=== PATIENT | female | born 1975 | race Caucasian/White ===

== ENCOUNTER 2019-06-28 08:00 | Outpatient (CLI) | payer MEDICAID ==
[2019-06-28 20:58] LABS: CANDIDA GROUP DNA POSITIVE (NEGATIVE); CANDIDA KRUSEI DNA NEGATIVE (NEGATIVE); TRICHOMONAS VAGINALIS DNA NEGATIVE (NEGATIVE)
== END 2019-06-28 23:59 | disposition home or self-care (01) ==
LOC: LAB.R 08:00
PROVIDERS: ATTEND Physician Assistant Medical
DX: N89.8 Other specified noninflammatory disorders of vagina (principal)
CPT/HCPCS: 87491; 87591; 87661; 87801

== ENCOUNTER 2019-07-01 08:00 | Outpatient (CLI) | payer MEDICAID ==
[2019-07-01 21:27] LABS: TRICHOMONAS VAGINALIS DNA NEGATIVE (NEGATIVE)
== END 2019-07-01 23:59 | disposition home or self-care (01) ==
LOC: LAB.R 08:00
PROVIDERS: ATTEND Physician Assistant Medical
DX: N89.8 Other specified noninflammatory disorders of vagina (principal)
CPT/HCPCS: 87491; 87591; 87661

== ENCOUNTER 2019-12-14 10:54 | Outpatient (CLI) | payer MEDICAID ==
--- NOTE | 2019-12-14 13:05 | XRAY Report ---
Reason: RIGHT ANKLE PAIN Procedure Date: 12/14/2019 Accession Number: [id number] / [id number] Procedure: WCP - Ankle 3 View RT CPT Code: Final Report FULL RESULT: PROCEDURE: Ankle 3 View RT INDICATIONS: RIGHT ANKLE PAIN TECHNIQUE: 3 views of the ankle were acquired. COMPARISON: None FINDINGS: Osteoarthritic changes of the tibiotalar and fibulotalar joints with narrowing of the mortise, small marginal osteophytes, and subchondral sclerosis of the medial talus. There is a small ankle joint effusion. IMPRESSION: Moderate osteoarthritic changes of the ankle. Small joint effusion likely related. Reviewed by: Fidel Pascual MD on 12/14/2019 1:04 PM PDT Approved by: Fidel Pascual MD on 12/14/2019 1:04 PM PDT Station ID: [id number]
== END 2019-12-14 23:59 | disposition home or self-care (01) ==
LOC: DI.WCP 10:54
PROVIDERS: ATTEND Physician Assistant
DX: M19.071 Primary osteoarthritis, right ankle and foot (principal)

== ENCOUNTER 2021-03-10 13:13 | Outpatient (CLI) | payer MEDICAID ==
--- NOTE | 2021-03-10 14:11 | XRAY Report ---
PROCEDURE: Knee 3 View LT INDICATIONS: LEFT KNEE PAIN TECHNIQUE: 4 views of the left knee(s) were acquired. COMPARISON: None. FINDINGS: Bones: No fractures or dislocations. Mild to moderate tricompartmental osteoarthritis is seen more p rominent in medial femoral tibial compartment. No suspicious bony lesions. Soft tissues: Moderate to large suprapatellar joint effusion is seen. No suspicious soft tissue calc ifications. IMPRESSION: Mild to moderate tricompartmental osteoarthritis more prominent in medial femoral tibial compartment. No fracture or dislocation. Moderate to large joint effusion. If indicated, MRI of knee can be done for evaluation of internal derangement. Reviewed by: Ananda Cordova MD on 03/10/2021 2:10 PM PDT Approved by: Ananda Cordova MD on 03/10/2021 2:10 PM PDT Station ID: [id number]
== END 2021-03-10 23:59 ==
LOC: DI.N 13:13
PROVIDERS: ATTEND Family Medicine
DX: M17.12 Unilateral primary osteoarthritis, left knee (principal); M25.462 Effusion, left knee

== ENCOUNTER 2021-09-25 12:38 | Outpatient (CLI) | payer MEDICAID ==
[2021-09-25 17:51] LABS: BASOPHILS # (AUTO) 0.1 10^3/uL (0.0-0.1); BASOPHILS % (AUTO) 0.9 %; EOSINOPHILS # (AUTO) 0.1 10^3/uL (0.0-0.7); EOSINOPHILS % (AUTO) 1.3 %; HCT - HEMATOCRIT 34.9 % (37.0-47.0); HGB - HEMOGLOBIN 9.8 g/dL (12.0-16.0); LYMPHOCYTES # (AUTO) 1.8 10^3/uL (1.5-3.5); LYMPHOCYTES % (AUTO) 23.8 %; MEAN CORPUSCULAR HEMOGLOBIN 19.3 pg (27.0-31.0); MEAN CORPUSCULAR HGB CONC 28.1 g/dL (32.0-36.0); MEAN CORPUSCULAR VOLUME 68.6 fL (81.0-99.0); MEAN PLATELET VOLUME 11.3 fL (7.9-10.8); MONOCYTES # (AUTO) 0.6 10^3/uL (0.0-1.0); MONOCYTES % (AUTO) 7.7 %; PLT - PLATELET COUNT 426 10^3/uL (130-450); RED BLOOD COUNT 5.09 10^6/uL (4.20-5.40); RED CELL DISTRIBUTION WIDTH 23.1 % (12.0-15.0); WHITE BLOOD COUNT 7.6 x10^3/uL (4.8-10.8)
[2021-09-25 18:10] LABS: % IRON SATURATION 29 % (20-50); ALBUMIN 4.3 g/dL (3.2-5.5); ALBUMIN/GLOBULIN RATIO 1.2 (1.0-2.2); ALKALINE PHOSPHATASE 87 IU/L (42-121); ALT ALANINE AMINOTRANSFERASE 26 IU/L (10-60); AST ASPARTATE AMINOTRANSFERASE 25 IU/L (10-42); BILIRUBIN,TOTAL 0.5 mg/dL (0.2-1.0); BUN - BLOOD UREA NITROGEN 16 mg/dL (6-20); CALCIUM 9.6 mg/dL (8.5-10.3); CARBON DIOXIDE - CO2 25 mmol/L (21-32); CHLORIDE 99 mmol/L (101-111); CHOLESTEROL 206 mg/dL; CREATININE 0.7 mg/dL (0.4-1.0); GFR - MDRD 90 (>89); GLUCOSE 106 mg/dL (70-100); HDL CHOLESTEROL 51 mg/dL; IRON 158 ug/dL (28-170); LDL CHOLESTEROL,CALCULATED 138 mg/dL; LDL/HDL RATIO 2.7 (<4.4); POTASSIUM 3.9 mmol/L (3.5-5.0); SODIUM 136 mmol/L (135-145); TOTAL IRON BINDING CAPACITY 546 ug/dL (250-450); TOTAL PROTEIN 7.9 g/dL (6.7-8.2); TRANSFERRIN 390 mg/dL (192-382); TRIGLYCERIDES 85 mg/dL; VLDL CHOLESTEROL 17 mg/dL
[2021-09-25 18:19] LABS: THYROID STIMULATING HORMONE 1.57 uIU/mL (0.34-5.60)
[2021-09-25 18:24] LABS: FERRITIN 6.8 ng/mL (11.0-306.8)
[2021-09-25 18:31] LABS: PLATELET ESTIMATE, MANUAL NORMAL (130-450,000) (NORMAL); PLATELET MORPHOLOGY 1+ GIANT PLATELETS (NORMAL); SLIDE REVIEW? Indicated; WBC MORPHOLOGY (MULTIPLE) NORMAL APPEARANCE (NORMAL)
[2021-09-25 19:56] LABS: ESTIMATED AVERAGE GLUCOSE 108 mg/dL (70-100); HEMOGLOBIN A1c% 5.4 % (4.27-6.07)
== END 2021-09-25 12:39 | disposition home or self-care (01) ==
LOC: LAB.N 12:38
PROVIDERS: ATTEND Nurse Practitioner Family
DX: E66.01 Morbid (severe) obesity due to excess calories (principal); K59.00 Constipation, unspecified; R19.7 Diarrhea, unspecified; Z13.220 Encounter for screening for lipoid disorders; E55.9 Vitamin D deficiency, unspecified; Z13.1 Encounter for screening for diabetes mellitus; Z98.84 Bariatric surgery status
CPT/HCPCS: 36415; 80053; 80061; 81599; 82306; 82607; 82728; 82746; 83036; 83516; 83540; 83721; 84425; 84443; 84466; 85025; 86003

== ENCOUNTER 2021-11-08 15:09 | Outpatient (CLI) | payer MEDICAID ==
[2021-11-08 17:57] LABS: BASOPHILS # (AUTO) 0.1 10^3/uL (0.0-0.1); BASOPHILS % (AUTO) 0.9 %; EOSINOPHILS # (AUTO) 0.1 10^3/uL (0.0-0.7); HCT - HEMATOCRIT 38.5 % (37.0-47.0); HGB - HEMOGLOBIN 11.6 g/dL (12.0-16.0); LYMPHOCYTES # (AUTO) 1.5 10^3/uL (1.5-3.5); MEAN CORPUSCULAR HEMOGLOBIN 22.6 pg (27.0-31.0); MEAN CORPUSCULAR HGB CONC 30.1 g/dL (32.0-36.0); MONOCYTES # (AUTO) 0.4 10^3/uL (0.0-1.0); MONOCYTES % (AUTO) 5.4 %; NEUTROPHILS # (AUTO) 5.9 10^3/uL (1.5-6.6); NEUTROPHILS % (AUTO) 73.3 %; PLT - PLATELET COUNT 367 10^3/uL (130-450); RED BLOOD COUNT 5.13 10^6/uL (4.20-5.40)
[2021-11-08 18:58] LABS: % IRON SATURATION 17 % (20-50); IRON 56 ug/dL (28-170); TOTAL IRON BINDING CAPACITY 332 ug/dL (250-450); TRANSFERRIN 237 mg/dL (192-382)
== END 2021-11-08 15:10 | disposition home or self-care (01) ==
LOC: LAB.N 15:09
PROVIDERS: ATTEND Nurse Practitioner Family
DX: D50.9 Iron deficiency anemia, unspecified (principal); R19.5 Other fecal abnormalities
CPT/HCPCS: 36415; 82728; 83540; 84466; 85025

== ENCOUNTER 2021-12-13 08:32 | Inpatient (IN) | payer MEDICAID ==
[2021-12-13 08:51] LABS: HCG UR QUAL NEGATIVE
[2021-12-13] MEDS ORDERED: LIDOCAINE 1% 50 ML MDV ONE (09:04)
[2021-12-13] MEDS ORDERED: BUPIVACAINE 0.5% PF 30 ML VIAL ONE (09:04)
[2021-12-13] MEDS ORDERED: LACTATED RINGERS 1,000 ML IV ONE ×2 (09:09→14:53)
[2021-12-13] MEDS ORDERED: PROPOFOL 200 MG/20 ML VIAL IVP ONE ×2 (09:12→10:42)
[2021-12-13] MEDS ORDERED: DEXAMETHASONE 4 MG/ML VIAL ONE (09:12)
[2021-12-13] MEDS ORDERED: ROCURONIUM 50 MG/5 ML VIAL ONE ×4 (09:12→13:11)
[2021-12-13] MEDS ORDERED: LIDOCAINE-MPF 2% 5 ML VIAL ONE (09:12)
[2021-12-13] MEDS ORDERED: ONDANSETRON 4 MG/2 ML VIAL ONE (09:12)
--- NOTE | 2021-12-13 09:15 | ANESTHESIA ---
Pre-Anesthesia VS, & Labs - Diagnosis incarcerated ventral hernia - Procedure open repair of ventral hernia Vital Signs: Temp Pulse Resp BP Pulse Ox 36.0 C L 71 16 115/78 95 12/13/21 08:49 12/13/21 08:49 12/13/21 08:49 12/13/21 08:49 12/13/21 08:49 Height: 5 ft 9 in Weight (kg): 122.2 kg Body Mass Index: 39.7 BMI Classification: Obese - NPO >8 hours - Is Patient ?: No Home Medications and Allergies Home Medications: Ambulatory Orders Dextroamphetamine/Amphetamine [Adderall 30 mg Tablet] 30 mg PO DAILY 12/05/21 buPROPion HCl [Wellbutrin Sr] 200 mg PO DAILY 12/05/21 Active Medications Cefazolin Sodium 3 gm/ Sodium (Chloride) 50 mls @ 100 mls/hr IV ONCE ONE Stop: 12/13/21 09:59 Dextroamphetamine/Amphetamine [Adderall 30 mg Tablet] 30 mg PO DAILY 12/05/21 buPROPion HCl [Wellbutrin Sr] 200 mg PO DAILY 12/05/21 Allergies/Adverse Reactions: Allergies Allergy/AdvReac Type Severity Reaction Status Date / Time naproxen [From Naprosyn] Allergy Severe Edema Verified 12/05/21 14:36 Anes History & Medical History - Anesthetic History Anesthesia Complications: reports: Other-see comment (slow heart rate on emergence) - Medical History Cardiovascular: reports: None Pulmonary: reports: None Gastrointestinal: reports: Other (history of gastric bypass) Urinary: reports: None Neuro: reports: None Musculoskeletal: reports: Osteoarthritis Endocrine/Autoimmune: reports: None Blood Disorders: reports: None Skin: reports: None Smoking Status: Former smoker (quit 10 years ago) Psychosocial: reports: Depression, Other (ADHD) History of Cancer?: No - Surgical History General: reports: Other (gastric bypass) Gynecologic: reports: section, Tubal ligation Exam General: Alert, Oriented x3, Cooperative, No acute distress Dental: WNL (upper bridge) Mouth Openin Fingerbreadth Neck Mobility: Normal Mallampati classification: II Thyromental Distance: 4-6 cm Respiratory: Lungs clear, Normal breath sounds, No respiratory distress, No accessory muscle use Cardiovascular: Regular rate, Normal S1, Normal S2, No murmurs Mental/Cognitive Status: Alert/Oriented X3, Normal for patient Plan Anesthesia Type: General Consent for Procedure(s) Verified and Reviewed: Yes Code Status: Attempt Resuscitation ASA classification: 2-Mild systemic disease Is this case an emergency?: No
[2021-12-13] MEDS ORDERED: HYDROmorphone 0.5 MG/0.5 ML SYRINGE IVP PRN (09:17)
[2021-12-13] MEDS ORDERED: NALOXONE 0.4 MG/ML VIAL IVP PRN (09:17)
[2021-12-13] MEDS ORDERED: fentaNYL 100 MCG/2 ML VIAL IVP PRN (09:17)
[2021-12-13] MEDS ORDERED: ONDANSETRON 4 MG/2 ML VIAL IVP PRN (09:17)
[2021-12-13] MEDS ORDERED: MORPHINE 2 MG/ML CARPUJECT IVP PRN (09:17)
[2021-12-13] MEDS ORDERED: ATROPINE ABBOJECT 1 MG/10 ML SYRINGE IVP PRN (09:17)
[2021-12-13] MEDS ORDERED: MIDAZOLAM 2 MG/2 ML VIAL ONE (09:18)
[2021-12-13] MEDS ORDERED: fentaNYL 100 MCG/2 ML VIAL ONE ×4 (09:18→14:37)
[2021-12-13] MEDS ORDERED: SEVOFLURANE 250 ML LIQUID INH ONE (09:24)
[2021-12-13] MEDS ORDERED: BUPIVACAINE 0.25% PF 10 ML VIAL ONE ×2 (09:33→13:17)
--- NOTE | 2021-12-13 09:46 | HISTORY & PHYSICAL EXAMINATION ---
Chief Complaint - Chief Complaint Chief Complaint: hernia bulge History of Present Illness - History Obtained From Records Reviewed: yes History obtained from: pt Exam Limitations: none - History of Present Illness HPI Comment/Other: history open gastric bypass many years ago. She has an enlarging and symptomatic incisional hernia History - Past Medical History Cardiovascular: reports: None Respiratory: reports: None Neuro: reports: None Endocrine/Autoimmune: reports: None GI: reports: Other (history of gastric bypass) : reports: None Psych: reports: Depression, Anxiety, ADD/ADHD, Post traumatic stress disorder Musculoskeletal: reports: Osteoarthritis Derm: reports: None MRSA Hx?: No - Past Surgical History General: reports: Other (gastric bypass) /[employer]: reports: section, Tubal ligation Meds/Allgy - Home Medications Home Medications: Ambulatory Orders Medication Instructions Recorded Confirmed Dextroamphetamine/Amphetamine 30 mg PO DAILY 12/05/21 12/13/21 [Adderall 30 mg Tablet] buPROPion HCl [Wellbutrin Sr] 200 mg PO DAILY 12/05/21 12/13/21 - Allergies Allergies/Adverse Reactions: Allergies Allergy/AdvReac Type Severity Reaction Status Date / Time naproxen [From Naprosyn] Allergy Severe Edema Verified 12/05/21 14:36 Review of Systems - Other Findings Other Findings: 10 pt ros as above otherwise unremarkable Exam - Vital Signs Reviewed Vital Signs: Yes Vital Signs: Vital Signs x48h Temp Pulse Resp BP Pulse Ox 12/13/21 08:49 36.0 C L 71 16 115/78 95 - Physical Exam General Appearance: positive: No acute distress, Alert Eyes Bilateral: positive: PERRL, EOMI, No scleral icterus ENT: positive: No signs of dehydration Neck: positive: No JVD Respiratory: positive: Breath sounds nml Cardiovascular: positive: Regular rate & rhythm Abdomen: positive: Non-tender, No distention, Other (large upper midline incisional hernia) Neurologic/Psychiatric: positive: Oriented x3 Conclusion/Plan - Problem List (1) Incisional hernia Conclusion/Plan: plan open repair with mesh. parq held and consent obtained
[2021-12-13] MEDS ORDERED: LACTATED RINGERS 1,000 ML IV SCH (10:00)
[2021-12-13] MEDS ORDERED: SCOPOLAMINE PATCH TOP SCH (10:00)
[2021-12-13] MEDS ORDERED: BUPIVACAINE 0.25% PF 30 ML VIAL SUBQ ONE ×2 (10:31)
[2021-12-13] MEDS ORDERED: ACETAMINOPHEN 1,000 MG/100 ML 1,000 MG/100 ML BAG IV ONE (10:43)
[2021-12-13] MEDS ORDERED: KETAMINE 500 MG/10 ML VIAL ONE (10:49)
[2021-12-13] MEDS ORDERED: SUGAMMADEX 200 MG/2 ML VIAL IVP ONE (12:50)
[2021-12-13] MEDS ORDERED: HYDROmorphone 1 MG/ML CARPUJECT ONE (13:04)
[2021-12-13] MEDS ORDERED: LACTATED RINGERS 800 ML IV ONE ×2 (14:01)
[2021-12-13] MEDS ORDERED: ONDANSETRON ODT 4 MG TABLET TL PRN (14:03)
[2021-12-13] MEDS ORDERED: HYDROmorphone 0.5 MG/0.5 ML SYRINGE ONE (14:37)
[2021-12-13] MEDS: LORazepam 0.5 MG TABLET PO PRN ×2 (14:44→17:43)
[2021-12-13] MEDS ORDERED: LORazepam 2 MG/ML VIAL ONE (14:52)
--- NOTE | 2021-12-13 15:15 | ANESTHESIA POST OP EVALUATION ---
Anesthesia Post Eval - Post Anesthesia Eval Vitals: Last Vital Signs Temp 36.8 C 12/13/21 15:03 Pulse 67 12/13/21 15:03 Resp 15 12/13/21 15:03 BP 152/90 H 12/13/21 15:03 Pulse Ox 97 12/13/21 15:03 CV Function Including HR & BP: Stable Pain Control: Satisfactory Nausea & Vomiting: Negative Mental Status: Baseline Respiratory Status: Airway Patent Hydration Status: Satisfactory Anesthesia Complications: None
[2021-12-13] MEDS ORDERED: LORazepam 2 MG/ML VIAL IVP ONE (16:00)
[2021-12-13] MEDS ORDERED: LORazepam 2 MG/ML VIAL IVP SCH (16:00)
[2021-12-13] MEDS: HYDROmorphone 0.5 MG/0.5 ML SYRINGE IVP PRN ×3 (16:35→23:34)
[2021-12-13] MEDS: D5.45NS W/20 MEQ KCL 1,000 ML IV SCH (16:41)
[2021-12-13] MEDS: SODIUM CHLORIDE FLUSH 0.9% 10 ML SYRINGE IVP SCH ×2 (17:22→23:34)
--- NOTE | 2021-12-13 18:08 | OPERATIVE REPORT ---
Operative Report - General Admit Date: 12/13/21 Procedure Date: 12/13/21 Planned Procedure: open incisional hernia repair with mesh Pre-Op Diagnosis: incarcerated incisional hernia Procedure Performed: open incisional hernia repair with mesh Post Op Diagnosis: incarcerated incisional hernia - Procedure Note Primary Surgeon: pedro hinojosa Anesthesia Technique: General ET tube, Local Pathology: skin, subcutaneous tissue, sac, portion omentum removed. not sent Estimated Blood Loss (mL): 175 Drain/Tube Type: Other (none) Indications: painful hernia bulge Findings: 6 x 12 cm fascial defect Complications: none - Other Other Information/Narrative: Patient was properly identified brought to the operating room and placed in supine position. Sequential compression devices were placed. Endotracheal anesthesia was induced. She was prepped and draped in a sterile fashion and given preoperative antibiotics. She had a supraumbilical 12 cm bulge on standing. This was partially reduced under anesthesia. Hernia bulge extended left lateral of the umbilicus. 8 x 6 cm wide elliptical incision was made and extended to the left lateral of the umbilicus. Dissection proceeded down to the hernia sac. Hernia sac was mobilized away from surrounding subcutaneous tissue down to the fascial defect. Hernia sac was then opened. A small portion of omentum which was densely adherent to the hernia sac was removed with the subcutaneous tissue and skin as well as hernia sac. Hemostasis was was achieved with clamps and 2-0 Vicryl ties. She had multiple near continuous fascial defects up to the epigastrium. An additional elliptical incision was made from the epigastrium to the periumbilical area. In her hernia sac was mobilized back to good fascia and then removed. Omental adhesions to the abdominal wall were taken down. Hemostasis was assured. No apparent complications. Omentum was largely beneath the midline incision area. 4 x 8 inch separate mesh was cut down to 2 to 2-1/2 inch wide by 7/2 inch long. Mesh was secured under the rectus with multiple interrupted 0 Prolene sutures. Fascia was closed over the mesh with additional interrupted 0 Prolene sutures which incorporated the mesh. Subcutaneous tissue was then closed in layers with 2 layers of interrupted 2-0 Vicryl suture followed by buried interrupted subdermal 3-0 Vicryl sutures. Skin was closed with a running 4-0 Monocryl subcuticular suture. Skin was applied. She was awakened and brought to recovery in good condition.
[2021-12-13] MEDS: HYDROmorphone PCA 20MG/100ML IV PRN (19:39)
[2021-12-13] MEDS: ONDANSETRON 4 MG/2 ML VIAL IVP PRN (23:34)
[2021-12-14] MEDS: D5.45NS W/20 MEQ KCL 1,000 ML IV SCH ×3 (02:18→21:55)
[2021-12-14] MEDS: LORazepam 0.5 MG TABLET PO PRN ×3 (02:18→21:54)
[2021-12-14] MEDS: HYDROmorphone 0.5 MG/0.5 ML SYRINGE IVP PRN ×3 (05:27→12:10)
[2021-12-14] MEDS: oxyCODONE 5 MG TABLET PO PRN ×2 (06:11→19:05)
[2021-12-14] MEDS: HEPARIN 5,000 UNIT/ML VIAL SUBQ SCH ×3 (06:27→21:55)
[2021-12-14] MEDS: ONDANSETRON 4 MG/2 ML VIAL IVP PRN ×2 (08:02→13:51)
[2021-12-14] MEDS: SODIUM CHLORIDE FLUSH 0.9% 10 ML SYRINGE IVP SCH ×2 (08:13→21:58)
[2021-12-14] MEDS: buPROPion SR 100 MG TABLET PO SCH (08:20)
--- NOTE | 2021-12-14 10:58 | PROVIDER PROGRESS NOTE ---
Subjective - Subjective Pt reports feeling: No change (very painful and no appetite) Objective - Vital Signs/Intake & Output Reviewed Vital Signs: Yes Vital Signs: Vital Signs x48h Temp Pulse Resp BP BP Pulse Ox 12/14/21 08:00 36.5 C 18 136/74 H 92 12/14/21 06:50 15 12/14/21 05:33 36.3 C L 69 16 121/67 95 12/14/21 05:00 16 12/14/21 03:00 14 Intake & Output: Intake & Output 12/11/21 12/12/21 12/13/21 12/14/21 23:59 23:59 23:59 23:59 Intake Total 1203.333 443.333 Output Total 625 900 Balance 578.333 -456.667 - Objective General Appearance: positive: No acute distress, Alert Eyes Bilateral: positive: PERRL, EOMI Respiratory: positive: No respiratory distress Abdomen: positive: No distention Neurologic/Psychiatric: positive: Oriented x3 Assessment/Plan - Problem List (1) Incisional hernia Impression: very large incarcerated incisional hernia and repair 12/13/2021. ileus and painful which is normal for size of repair. continue present care verdugo out tomorrow and pt consult tomorrow home when ambulating safely and pain controlled on pills alone. on transportation agent currently
[2021-12-14] MEDS: DOCUSATE SODIUM 250 MG CAPSULE PO SCH (12:13)
--- NOTE | 2021-12-14 14:56 | PHARMACY PROGRESS NOTE ---
- Best Possible Medication History Admit Date and Time: 12/13/21 1508 Processed by: Pharmacy Medication History completed: Yes Patient Interview: Pt unable to participate Secondary Source(s): Insurance records As the person ultimately responsible for medication therapy, providers are able to order a medication from an existing home medication list in [facility] via the "Reconcile Routine" prior to Confirmation of that medication by patient support representative. Such practice is discouraged except when the physician, in their clinical judgment, deems that a medical need exists for a medication without regard to previous use.
[2021-12-14] MEDS: ACETAMINOPHEN 325 MG TABLET PO PRN (19:05)
[2021-12-14] MEDS: HYDROmorphone PCA 20MG/100ML IV PRN (22:41)
[2021-12-15] MEDS: SODIUM CHLORIDE FLUSH 0.9% 10 ML SYRINGE IVP SCH ×4 (00:39→23:43)
[2021-12-15] MEDS: oxyCODONE 5 MG TABLET PO PRN ×6 (00:50→22:21)
[2021-12-15] MEDS: ACETAMINOPHEN 325 MG TABLET PO PRN ×5 (00:51→22:25)
[2021-12-15] MEDS: ONDANSETRON 4 MG/2 ML VIAL IVP PRN ×2 (00:54→07:53)
[2021-12-15] MEDS: SODIUM CHLORIDE FLUSH 0.9% 10 ML SYRINGE IVP PRN (00:54)
[2021-12-15] MEDS: D5.45NS W/20 MEQ KCL 1,000 ML IV SCH ×2 (07:48→16:46)
[2021-12-15] MEDS: HEPARIN 5,000 UNIT/ML VIAL SUBQ SCH ×2 (07:49→20:09)
[2021-12-15] MEDS: buPROPion SR 100 MG TABLET PO SCH (07:53)
[2021-12-15] MEDS: DOCUSATE SODIUM 250 MG CAPSULE PO SCH ×2 (07:54→18:02)
[2021-12-15] MEDS: polyethylene glycoL 3350 17 GM PACKET PO SCH (07:55)
--- NOTE | 2021-12-15 09:51 | PROVIDER PROGRESS NOTE ---
Subjective - Subjective Pt reports feeling: Improved (still very uncomforable however better. nausea remains) Objective - Vital Signs/Intake & Output Reviewed Vital Signs: Yes Vital Signs: Vital Signs x48h Temp Pulse Resp BP Pulse Ox 12/15/21 07:17 36.7 C 79 17 137/74 H 90 L 12/15/21 05:47 16 Intake & Output: Intake & Output 12/12/21 12/13/21 12/14/21 12/15/21 23:59 23:59 23:59 23:59 Intake Total 3262.799 2292.000 1048.333 Output Total 625 1700 775 Balance 186.894 8841.000 273.333 - Objective General Appearance: positive: No acute distress, Alert Eyes Bilateral: positive: PERRL, EOMI ENT: positive: No signs of dehydration Neck: positive: No JVD Respiratory: positive: No respiratory distress Abdomen: positive: Non-tender, No distention Neurologic/Psychiatric: positive: Oriented x3 Assessment/Plan - Problem List (1) Incisional hernia Impression: very large incisional hernia and repair. very painful and ileus as anticipated ie normal for this size of hernia repair d/c verdugo continue current care otherwise home when able to ambulate safely, comfortable on pain pills alone, no longer requiring o2
[2021-12-15] MEDS: LORazepam 0.5 MG TABLET PO PRN (16:46)
[2021-12-15] MEDS: diphenhydrAMINE INJ 50 MG/ML VIAL IVP PRN (20:11)
[2021-12-16] MEDS: ACETAMINOPHEN 325 MG TABLET PO PRN ×5 (02:30→18:19)
[2021-12-16] MEDS: oxyCODONE 5 MG TABLET PO PRN ×6 (02:30→22:15)
[2021-12-16] MEDS: D5.45NS W/20 MEQ KCL 1,000 ML IV SCH ×3 (02:32→14:23)
[2021-12-16] MEDS: diphenhydrAMINE INJ 50 MG/ML VIAL IVP PRN (05:23)
[2021-12-16] MEDS: polyethylene glycoL 3350 17 GM PACKET PO SCH (07:54)
[2021-12-16] MEDS: buPROPion SR 100 MG TABLET PO SCH (07:56)
[2021-12-16] MEDS: HEPARIN 5,000 UNIT/ML VIAL SUBQ SCH ×2 (07:59→22:10)
[2021-12-16] MEDS: SODIUM CHLORIDE FLUSH 0.9% 10 ML SYRINGE IVP SCH ×3 (08:09→23:27)
[2021-12-16] MEDS: LORazepam 0.5 MG TABLET PO PRN ×2 (08:19→16:14)
[2021-12-16] MEDS: HYDROmorphone PCA 20MG/100ML IV PRN (08:27)
[2021-12-16] MEDS ORDERED: LACTULOSE 10 GM /15 ML UDC PO ONE (09:00)
[2021-12-16] MEDS: HYDROmorphone 0.5 MG/0.5 ML SYRINGE IVP PRN ×2 (11:59→16:14)
[2021-12-16] MEDS: DOCUSATE SODIUM 250 MG CAPSULE PO SCH ×3 (11:59→14:25)
--- NOTE | 2021-12-16 14:16 | PROVIDER PROGRESS NOTE ---
Subjective - Subjective Pt reports feeling: Improved (pain improved and less nausea) Objective - Vital Signs/Intake & Output Reviewed Vital Signs: Yes Vital Signs: Vital Signs x48h Pulse Resp BP Pulse Ox 12/16/21 13:00 17 12/16/21 08:27 17 12/16/21 07:15 79 16 117/63 92 Intake & Output: Intake & Output 12/13/21 12/14/21 12/15/21 12/16/21 23:59 23:59 23:59 23:59 Intake Total 4262.234 6280.000 2435.000 2510.007 Output Total 625 1700 1375 Balance 118.818 6432.000 8208.303 2661.007 - Objective General Appearance: positive: No acute distress, Alert, Other (appears much more comfortable today) Eyes Bilateral: positive: PERRL, EOMI, No scleral icterus ENT: positive: No signs of dehydration Neck: positive: No JVD Respiratory: positive: No respiratory distress Abdomen: positive: Non-tender, No distention, Other (dressing c/d/i no erythema. very mild ecchymosis) Neurologic/Psychiatric: positive: Oriented x3 Assessment/Plan - Problem List (1) Incisional hernia Impression: pain better and nausea improved. breathing easier today decrease ivf d/c stitcher standard machine when pain controlled on pain pills likely home tomorrow
[2021-12-17] MEDS: HYDROmorphone 0.5 MG/0.5 ML SYRINGE IVP PRN ×2 (00:39→17:22)
[2021-12-17] MEDS: diphenhydrAMINE INJ 50 MG/ML VIAL IVP PRN ×2 (00:39→22:07)
[2021-12-17] MEDS: oxyCODONE 5 MG TABLET PO PRN ×6 (02:31→23:12)
[2021-12-17] MEDS: ACETAMINOPHEN 325 MG TABLET PO PRN ×6 (02:32→23:11)
[2021-12-17] MEDS: D5.45NS W/20 MEQ KCL 1,000 ML IV SCH (07:01)
[2021-12-17] MEDS: DOCUSATE SODIUM 250 MG CAPSULE PO SCH (07:57)
[2021-12-17] MEDS: buPROPion SR 100 MG TABLET PO SCH (07:57)
[2021-12-17] MEDS: polyethylene glycoL 3350 17 GM PACKET PO SCH (07:57)
[2021-12-17] MEDS: LORazepam 0.5 MG TABLET PO PRN ×2 (07:58→17:23)
[2021-12-17] MEDS: SODIUM CHLORIDE FLUSH 0.9% 10 ML SYRINGE IVP SCH ×4 (07:58→22:07)
[2021-12-17] MEDS: HEPARIN 5,000 UNIT/ML VIAL SUBQ SCH ×2 (08:00→21:49)
--- NOTE | 2021-12-17 09:20 | PROVIDER PROGRESS NOTE ---
Subjective - Subjective Pt reports feeling: No change (still painful requiring block cutter) Objective - Vital Signs/Intake & Output Reviewed Vital Signs: Yes Vital Signs: Vital Signs x48h Pulse Resp BP Pulse Ox 12/17/21 07:49 72 18 125/70 95 12/17/21 06:00 18 12/17/21 02:00 16 Intake & Output: Intake & Output 12/14/21 12/15/21 12/16/21 12/17/21 23:59 23:59 23:59 23:59 Intake Total 2855.000 2435.000 3000.007 881.667 Output Total 1700 1375 Balance 8570.390 5083.000 3000.007 881.667 - Other Results/Comments Other Results/Comments: spoke with nurse. still painful. mobility is limited and diet is poor Assessment/Plan - Problem List (1) Incisional hernia Impression: very large hernia and repair. still painful with limited mobility. still requiring block cutter plan home when pain improved and mobility improved
[2021-12-17] MEDS: HYDROmorphone PCA 20MG/100ML IV PRN (11:51)
[2021-12-17] MEDS: SODIUM CHLORIDE FLUSH 0.9% 10 ML SYRINGE IVP PRN (21:49)
[2021-12-18] MEDS: D5.45NS W/20 MEQ KCL 1,000 ML IV SCH (02:35)
[2021-12-18] MEDS: LORazepam 0.5 MG TABLET PO PRN ×2 (02:39→09:55)
[2021-12-18] MEDS: oxyCODONE 5 MG TABLET PO PRN ×3 (04:05→12:27)
[2021-12-18] MEDS: ACETAMINOPHEN 325 MG TABLET PO PRN ×3 (04:05→12:26)
--- NOTE | 2021-12-18 08:07 | Discharge Plan ---
Discharge Plan Problem Reviewed?: Yes Disposition: Home, Self Care Condition: Good Prescriptions: LORazepam [Ativan] 0.5 mg PO BID PRN #10 tablet PRN Reason: Abdominal Pain oxyCODONE/ACET 5/325 [Percocet 5 mg/325 mg] 1 each PO Q4-6H PRN #40 tablet PRN Reason: Pain Diet: Regular Activity Restrictions: No Restrictions Shower Restrictions: No Driving Restrictions: Yes (no driving while taking pain pills) Health Concerns: none/ recent hernia surgery Plan of Treatment: large incisional hernia and repair. unremarkable postop course Assessment: doing well/ improved Additional Instructions or Follow Up instructions: follow up surgery office in 1 week and as needed [phone] No Smoking: If you smoke, Please STOP! Call for help. Follow-up with: Madiha Durham PA-C [Primary Care Provider] -
[2021-12-18] MEDS: buPROPion SR 100 MG TABLET PO SCH (08:10)
[2021-12-18] MEDS: HEPARIN 5,000 UNIT/ML VIAL SUBQ SCH (08:10)
[2021-12-18] MEDS: polyethylene glycoL 3350 17 GM PACKET PO SCH (08:10)
[2021-12-18] MEDS: DOCUSATE SODIUM 250 MG CAPSULE PO SCH (08:11)
--- NOTE | 2021-12-18 08:11 | DISCHARGE SUMMARY ---
"Discharge Summary Admit Date: 12/13/21 Discharge Date: 12/18/21 Discharging Provider: pedro hinojosa Code Status: Attempt Resuscitation Condition at Discharge: Good Discharge Disposition: Home, Self Care Discharge Facility Name: [facility] - DIAGNOSES Admission Diagnoses: large incisional hernia Discharge Diagnoses with Status of Each Condition: home in good condition after repair - HPI History of Present Illness: distant open gastric bypass. very large incisional hernia, symptomatic - CONSULTS | PROCEDURES Procedures: open incisional hernia repair with mesh, verdugo catheter, pt consult - HOSPITAL COURSE Hospital Course: pain and ileus slowly improved. home 12/18/2021 in good condition - ALLERGIES Allergies/Adverse Reactions: Allergies Allergy/AdvReac Type Severity Reaction Status Date / Time naproxen [From Naprosyn] Allergy Severe Edema Verified 12/05/21 14:36 - MEDICATIONS Home Medications: Ambulatory Orders Medication Instructions Recorded Confirmed buPROPion HCl [Wellbutrin Sr] 200 mg PO DAILY 12/05/21 12/13/21 Dextroamphetamine/Amphetamine 30 mg PO DAILY 12/14/21 12/14/21 [Adderall Xr 30 mg Capsule] LORazepam [Ativan] 0.5 mg PO BID PRN #10 tablet 12/17/21 oxyCODONE/ACET 5/325 [Percocet 5 1 each PO Q4-6H PRN #40 tablet 12/17/21 mg/325 mg] - PHYSICAL EXAM AT DISCHARGE General Appearance: positive: No acute distress, Alert Eyes Bilateral: positive: PERRL, EOMI ENT: positive: No signs of dehydration Neck: positive: No JVD Respiratory: positive: No respiratory distress Abdomen: positive: Non-tender, No distention, Other (incision c/d/i no erythema) Neurologic/Psychiatric: positive: Oriented x3 - FOLLOW UP Follow Up: surgery office in 1 week and as needed [phone]"
[2021-12-18 11:27] VITALS: BP 122/78
== END 2021-12-18 13:00 | disposition home or self-care (01) | DRG 354 ==
LOC: SDS 08:32 → MS2 13:47 → SDS 15:04 → MS2 15:08
PROVIDERS: ADMIT Surgery; ATTEND Surgery
PROC: 0WUF0JZ Supplement Abdominal Wall with Synthetic Substitute, Open Approach (ICD-10-PCS; principal; 2021-12-13 09:30)
DX: K43.0 Incisional hernia with obstruction, without gangrene (principal); K56.7 Ileus, unspecified; F32.A Depression, unspecified; F41.9 Anxiety disorder, unspecified; F90.9 Attention-deficit hyperactivity disorder, unspecified type; F43.10 Post-traumatic stress disorder, unspecified; M19.90 Unspecified osteoarthritis, unspecified site; Z32.02 Encounter for pregnancy test, result negative; Z98.0 Intestinal bypass and anastomosis status; Z98.51 Tubal ligation status; Z98.84 Bariatric surgery status
CPT/HCPCS: 81025; 97161; A9270; J0131; J1170; J1200; J2060; J3490; J7040; J7120; Q0162

== ENCOUNTER 2022-06-26 03:39 | Outpatient (CLI) | payer MEDICAID | END 2022-06-26 03:40 | disposition EMS.NT | LOC: EMS 03:39 | DX: Z04.6 Encounter for general psychiatric examination, requested by authority (principal) ==